=== PATIENT | male | born 1995 | race Caucasian/White ===

== ENCOUNTER 2024-06-07 15:55 | Emergency (ER) | payer SELFPAY ==
[~2024-06-07] VITALS: Ht 177.8 cm; Wt 81.0 kg
[2024-06-07 16:08] VITALS: O2SAT 99
[2024-06-07 22:10] VITALS: BP 117/84; PULSE 84; RESP 18; TEMP 36.83628; O2SAT 98
== END 2024-06-07 22:11 | disposition home or self-care (01) ==
LOC: ER 15:55
DX: S80.211A Abrasion, right knee, initial encounter (principal); M25.561 Pain in right knee; M25.531 Pain in right wrist; V23.99XA Unspecified rider of other motorcycle injured in collision with car, pick-up truck or van in traffic accident, initial encounter; Y93.89 Activity, other specified; Y92.89 Other specified places as the place of occurrence of the external cause; Y99.8 Other external cause status
CPT/HCPCS: 73110; 73560; 93005; 99284